=== PATIENT | male | born 1970 | race Caucasian/White ===

== ENCOUNTER 2020-02-14 08:18 | Outpatient (CLI) | payer BC ==
--- NOTE | 2020-02-14 11:20 | MRI ---
MRI CERVICAL SPINE WITHOUT CONTRAST: Date: 02/14/2020 INDICATION: Ataxia. Neck pain. FINDINGS: The cervical vertebra maintain height and alignment. Vertebral body signal appears normal. There are degenerative changes. Mild anterior wedging of C5 with anterior osteophytes at C4, C5, and C6. Mild loss of disc space at C5-6. The other disc spaces are relatively well preserved. No significant disc bulge or protrusion seen at C2-3, C3-4, or C4-5. At C5-6, there is a disc protrusion paracentrally on the left which does compress the anterior cord o n the left producing significant cord compression and central canal stenosis. No definite edema or my elomalacia seen within the cord on T2 images. At C6-7, no significant disc bulge or protrusion. IMPRESSION: Disc protrusion paracentrally on the left at C5-6 produces cord compression and central canal stenosi s. POS: AGW
--- NOTE | 2020-02-14 11:59 | MRI ---
MRI BRAIN WITH AND WITHOUT CONTRAST: Date: 02/14/2020 INDICATION: Ataxia. FINDINGS: Ventricles have normal size and position. No evidence of restricted diffusion. No mass or edema. There are a few scattered tiny white matter hyperintensities on FLAIR sequence seen in the subcortica l white matter of both cerebral hemispheres. No significant deep white matter signal abnormality. No abnormal enhancement. The intracranial internal carotid arteries, cerebral arteries, basilar arteries, and dural venous sin uses exhibit flow-voids. Paranasal sinuses and mastoids appear clear. IMPRESSION: 1. There are a few scattered tiny white matter hyperintensities in the subcortical white matter of b oth cerebral hemispheres. These are nonspecific and do not appear to represent pathologic white matte r abnormality. If there is clinical concern, a follow-up noncontrast MRI can be performed in 6 months to confirm stability. 2. MRI brain otherwise unremarkable. POS: AGW
== END 2020-02-14 08:19 | disposition home or self-care (01) ==
LOC: BICMRI 08:18
PROVIDERS: ATTEND Psychiatry & Neurology Neurology
DX: R27.0 Ataxia, unspecified (principal); R93.89 Abnormal findings on diagnostic imaging of other specified body structures; M50.222 Other cervical disc displacement at C5-C6 level; M48.02 Spinal stenosis, cervical region
CPT/HCPCS: 70553; 72141

== ENCOUNTER 2020-02-26 15:38 | Outpatient (CLI) | payer BC ==
--- NOTE | 2020-02-26 16:21 | RAD ---
CERVICAL SPINE FIVE VIEWS: 02/26/20 INDICATION: History of herniated nucleus pulposus of the cervical region. Disc displacement. COMPARISON: Cervical spine MRI examination dated 02/14/20. FINDINGS: There is moderate disc degenerative disease at C5-6. There is slight retrolisthesis of C5 on C6. This slightly reduces with flexion and extension. There is mild facet joint degenerative change. Preverte bral soft tissues are normal appearing. Lung apices are clear. IMPRESSION: Mild cervical spondylosis most pronounced at C5-6. Mild retrolisthesis of C5 on C6 reduces with exten betsey and flexion. POS: BH
== END 2020-02-26 15:39 | disposition home or self-care (01) ==
LOC: BICRAD 15:38
PROVIDERS: ATTEND Neurological Surgery
DX: M50.20 Other cervical disc displacement, unspecified cervical region (principal); M47.812 Spondylosis without myelopathy or radiculopathy, cervical region; M43.12 Spondylolisthesis, cervical region
CPT/HCPCS: 72050

== ENCOUNTER 2020-03-10 06:42 | Outpatient (CLI) | payer BC ==
[2020-03-10 11:03] LABS: Hemoglobin 15.9 g/dL (14.0-18.0); Mean Corpuscular HGB CONC 34.2 G/DL (32.0-36.0); Mean Corpuscular Hemoglobin 31.6 PG (27.0-33.0); Mean Corpuscular Volume 92.4 fl (80.0-100.0); Mean Platelet Volume 10.6 fl (7.4-10.4); Platelet Count 202 10x3/uL (130-400); RBC Distribution Width 12.6 % (11.5-14.5); Red Blood Cell (RBC) Count 5.03 10x6/uL (4.40-5.80); White Blood Cell (WBC) Count 8.5 10x3/uL (4.5-11.0)
[2020-03-10 11:42] LABS: PTT 28.6 sec (22.0-33.0); Prothrombin Time 10.1 sec (9.5-12.1)
--- NOTE | 2020-03-10 16:58 | EKG ---
Test Reason : Blood Pressure : / mmHG Vent. Rate : 100 BPM Atrial Rate : 100 BPM P-R Int : 138 ms QRS Dur : 080 ms QT Int : 328 ms P-R-T Axes : 075 090 038 degrees QTc Int : 423 ms Normal sinus rhythm Rightward axis Borderline ECG Confirmed by DR. Luz WILSON ([id number]) on 03/10/2020 4:57:37 PM Referred By: CHAS Confirmed By:DR. Luz WILSON
[2020-03-10 19:13] LABS: SARS-CoV-2 MS2 Positive; SARS-CoV-2 N Gene Negative; SARS-CoV-2 S Gene Negative; SARS-CoV-2 by NAA Not Detected (NotDetected); SARS-CoV-2 orf1ab Negative
== END 2020-03-10 06:43 | disposition home or self-care (01) ==
LOC: LABBT 06:42
PROVIDERS: ATTEND Neurological Surgery
DX: Z01.818 Encounter for other preprocedural examination (principal); Z20.828 Contact with and (suspected) exposure to other viral communicable diseases; M50.022 Cervical disc disorder at C5-C6 level with myelopathy
CPT/HCPCS: 85027; 85610; 85730; 87635; 93005; 93010; U0003

== ENCOUNTER 2020-03-13 10:32 | Day surgery (SDC) | payer BC ==
[2020-03-12 09:05] VITALS: BMI 26.4
--- NOTE | 2020-03-13 05:15 | HP ---
REASON FOR H AND P: Surgery on 03/13/2020, case #[id number]. HISTORY OF PRESENT ILLNESS: Mr. Meraz is a 49-year-old male, who complains for the past 1 year of balance instability. His balance issues started to get worse a few months ago. Along with his balance instability, he also has numbness in his right hand more so than his left hand. As of a few months ago, he reports constant numbness in his bilateral thumb, pointer, and middle finger. He has become clumsy with his fingers and is having difficulty holding objects. Denies bladder or bowel dysfunction. REVIEW OF SYSTEMS: CONSTITUTIONAL: Denies fever, chills. ENT: Denies change in vision or hearing. CARDIAC: Denies chest pain, shortness of breath, diaphoresis. PULMONARY: Denies shortness of breath, cough, hemoptysis. GI: Denies abdominal pain, nausea, vomiting, diarrhea, change in stool formation and consistency. : Denies trouble with urination, frequency of urination, bloody urine. SKIN: Denies skin rash, bruising, bleeding, skin masses. MUSCULOSKELETAL: As per history of present illness. NEUROLOGICAL: As per history of present illness. PSYCHOLOGICAL: Denies anxiety, depression, behavior changes. PAST MEDICAL HISTORY: 1. Hypertension. 2. Insomnia. PAST SURGICAL HISTORY: Knee, ear. HOSPITALIZATIONS: As above surgeries. FAMILY HISTORY: Father , diagnosed with hypertension and cancer. Mother , cancer. Children are alive. SOCIAL HISTORY: Recently quit smoking. Occasional alcohol use. Denies illicit drug use. MEDICATIONS: 1. Folic acid 0.4 mg. 2. Becca-D 24-hour tablet. 3. Clonidine 0.1 mg. 4. Alprazolam 0.5 mg. 5. Levothyroxine 50 mcg. 6. Carbamazepine 100 mg. ALLERGIES: NO KNOWN DRUG ALLERGY. PHYSICAL EXAMINATION: VITAL SIGNS: Weight 190, height 71 inches, BMI 26.50. HEENT: Pupils are equal. NECK: Normal, soft, and supple. No masses are noted. Range of motion is intact and slightly painful. NEUROLOGIC: Awake, alert, and oriented x3. Memory, attention, fund of knowledge, and language are normal. Cranial nerves grossly intact. Gait and station, mild spasticity. Tandem gait is off balance. Motor exam; bilateral weakness in hand intrinsics and arm extensors. Sensory exam, nondermatomal loss of sensation in bilateral hands. Reflex exam, very brisk knees. Clonus 1-2. IMAGING STUDIES: MRI of the C-spine: cord compression from herniated cervical disk at C5-C6. X-ray of the C-spine: flexion-extension stable. 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 PLAN: 1. C5-C6 ACDF. Anesthesia clearance and primary care clearance. 2. Preop labs; CBC, PT, PTT, COVID-19. 3. Stop smoking 4 weeks prior to surgery. 4. Clearance INFORMED CONSENT: We discussed the indications, risks, benefits, alternatives, and expected results from surgery. The risks discussed included, but were not limited to, bleeding, infection, CSF leak, nerve damage, weakness, swallowing trouble, feeding tube placement, tracheal injury, esophageal injury, vocal cord injury, spinal cord injury, incontinence, paralysis, ventilator dependency, wheelchair dependency, stroke, loss of vision, carotid artery injury, jugular vein injury, hardware misplacement, cardiopulmonary complications of anesthesia or . Long-term complications discussed included, but were not limited to, hardware failure and degeneration of surrounding disk. He understands the risks and is willing to proceed. Job ID: [id number] [facility]
[2020-03-13] MEDS ORDERED: HYDROmorphone 2 MG/ML VIAL ONE (11:40)
[2020-03-13] MEDS ORDERED: Fentanyl 100 MCG/2 ML VIAL ONE ×3 (11:40→15:31)
[2020-03-13] MEDS ORDERED: Thrombin 5000 UNITS/5 ML VIAL ONE (11:45)
[2020-03-13] MEDS ORDERED: SUGAMMADEX SODIUM 200 MG/2 ML VIAL ONE (12:42)
[2020-03-13] MEDS ORDERED: Midazolam HCl 2 mg/2 ml Vial ONE ×2 (12:43→12:54)
[2020-03-13] MEDS ORDERED: Promethazine HCl 25 MG/ML VIAL IM PRN (13:53)
[2020-03-13] MEDS ORDERED: PACU-Morphine 4MG/ML VIAL SLOW IVP PRN (13:53)
[2020-03-13] MEDS ORDERED: Meperidine HCl/PF 25 MG/ML VIAL SLOW IVP PRN (13:53)
[2020-03-13] MEDS ORDERED: HYDROmorphone 2 MG/ML VIAL SLOW IVP PRN (13:53)
[2020-03-13] MEDS ORDERED: Promethazine HCl 25 MG/ML VIAL SLOW IVP PRN (13:53)
[2020-03-13] MEDS ORDERED: Ondansetron HCl/PF 4 MG/2 ML Vial IVP PRN (13:53)
[2020-03-13] MEDS ORDERED: Morphine Sulfate 2 MG/ML SYRINGE SLOW IVP PRN (13:53)
[2020-03-13] MEDS ORDERED: Tamsulosin HCl 0.4 MG CAP ONE (16:09)
--- NOTE | 2020-03-13 20:10 | OP ---
DATE OF PROCEDURE: 03/13/2020 PARTS CONSULTANT: Oni Cadena PA-C PREOPERATIVE INDICATION: Prevent neurological deterioration. PREOPERATIVE DIAGNOSIS: Cervical intervertebral disk herniation at C5-6 with cord compression and myelopathy. POSTOPERATIVE DIAGNOSIS: Cervical intervertebral disk herniation at C5-6 with cord compression and myelopathy. OPERATIVE PROCEDURE: Anterior cervical diskectomy, intervertebral arthrodesis, placement of intervertebral biomechanical device and anterior cervical plating at C5-6, local morselized autograft, morselized allograft, and operating microscope (the anterior cervical plate with a separate device from the interbody graft). PREOPERATIVE MEDICATIONS: Ancef 2 g IV. DRAIN NUMBER: Zero. DRAIN TYPE: None. DESCRIPTION OF PROCEDURE: The patient was brought to the operating room. General endotracheal anesthesia was induced. The patient was positioned on the operating table supine with his head supported by a donut-shaped headrest and his neck was kept in normal anatomic alignment. A lateral fluoro radiograph was used to plan our incision. The right side of the neck was sterilely prepped and draped. We opened our incision with a 10 blade knife and controlled bleeding with bipolar cautery. We dissected sharply to the platysma and cut this muscle in line with our incision. We continued our dissection medial to the sternocleidomastoid and lateral to the trachea and esophagus. We arrived to the prevertebral space. We placed a marker at C5-6 and took a lateral fluoro radiograph to confirm the level upon which we were operating. We elevated the longus colli muscles off the anterior surface of the vertebral bodies at C5 and C6 and placed a self-retaining retractor beneath them. We placed distraction pins at C5 and C6 and distracted across the intervening interspace. We incised the interspace with a 15-blade knife and removed disk contents using curettes and rongeurs. As we approached the posterior longitudinal ligament, the operative microscope was brought into the field. Under microscopic magnification using microsurgical techniques, we removed the remainder of the intervertebral disk. We accessed the ventral epidural space with a micro curette and removed posterior longitudinal ligament and posterior osteophytes across the entire interspace from one neural foramen to the other until there was wide decompression of the dura and both foramina. We turned our attention to arthrodesis. We prepared the endplates for grafting using curettes. We measured the height of the interspace with a bone rasp to 9 mm. A 9 mm PEEK intervertebral graft was brought into the field. Morselized osteophytes removed during our decompression were cleaned of soft tissue attachments and added into demineralized bone matrix to form our fusion substrate. The substrate was packed in the center of the PEEK device and that device was advanced into the interspace under radiographic guidance to the appropriate depth. We removed our distraction pins. We removed the operating microscope. A 14 mm anterior cervical plate was brought into the field. We drilled army helicopter pilot holes through the plate into the vertebral bodies. We affixed the plate to C5 and C6 using 14 mm screws. We engaged the locking mechanism over each of the 4 screws. Fixed angle screws were used at C6 and variable angle screws at C5. AP and lateral fluoro radiographs confirmed adequate positioning of our instrumentation. The anterior cervical plate was a separate device from the PEEK interbody device. We irrigated with bacitracin irrigation. We closed the wound in anatomical layers. We applied a sterile dressing. This was a clean case, no contamination. Job ID: [id number]
== END 2020-03-13 18:18 | disposition home or self-care (01) ==
LOC: SDC 10:32
PROVIDERS: ATTEND Neurological Surgery
PROC: 0RT30ZZ Resection of Cervical Vertebral Disc, Open Approach (ICD-10-PCS; principal; 2020-03-13)
PROC: 0RG10A0 Fusion of Cervical Vertebral Joint with Interbody Fusion Device, Anterior Approach, Anterior Column, Open Approach (ICD-10-PCS; principal; 2020-03-13)
DX: M50.022 Cervical disc disorder at C5-C6 level with myelopathy (principal); I10 Essential (primary) hypertension; G47.00 Insomnia, unspecified; E03.9 Hypothyroidism, unspecified; F41.9 Anxiety disorder, unspecified; N40.0 Benign prostatic hyperplasia without lower urinary tract symptoms; Z79.899 Other long term (current) drug therapy
CPT/HCPCS: 76000; C1713; C1776; J0690; J1170; J2250; J3010; J3490

== ENCOUNTER 2020-05-16 10:03 | Outpatient (CLI) | payer BC ==
--- NOTE | 2020-05-16 10:24 | RAD ---
Cervical spine 4 views: 05/16/2020 COMPARISON: 02/26/2020 HISTORY: Evaluate cervical spine following surgery FINDINGS: Anterior discectomy and fusion hardware is present at the C5-6 level. There is no cervical anterolisthesis or retrolisthesis. No significant prevertebral soft tissue swelling is noted. Prevertebral soft tissue thickness appears similar when compared to the 02/26/2020 exam. There is mil d degenerative change at the atlantoaxial interspace, stable. No evidence for hardware failure. The open-mouth odontoid view demonstrates a normal-appearing dens and C1-2 articulation. The swimmer' s lateral view demonstrates a grossly unremarkable cervicothoracic junction. IMPRESSION: Postoperative changes of the cervical spine as detailed above.
== END 2020-05-16 10:04 | disposition home or self-care (01) ==
LOC: TBSIIMAG 10:03
PROVIDERS: ATTEND Neurological Surgery
DX: M50.20 Other cervical disc displacement, unspecified cervical region (principal); Z98.890 Other specified postprocedural states
CPT/HCPCS: 72040

== ENCOUNTER 2020-08-21 12:57 | Outpatient (CLI) | payer BC | END 2020-08-21 12:58 | disposition home or self-care (01) | LOC: BICRAD 12:57 | PROVIDERS: ATTEND Neurological Surgery | DX: R20.0 Anesthesia of skin (principal); Z98.890 Other specified postprocedural states | CPT/HCPCS: 72040 ==

== ENCOUNTER 2021-01-06 07:42 | Outpatient (CLI) | payer BC | END 2021-01-06 07:43 | disposition home or self-care (01) | LOC: TBSIIMAG 07:42 | PROVIDERS: ATTEND Neurological Surgery | DX: G25.9 Extrapyramidal and movement disorder, unspecified (principal); R26.9 Unspecified abnormalities of gait and mobility; M47.816 Spondylosis without myelopathy or radiculopathy, lumbar region; M51.24 Other intervertebral disc displacement, thoracic region | CPT/HCPCS: 72146; 72148 ==

== ENCOUNTER 2023-03-18 12:51 | Outpatient (CLI) | payer BC | END 2023-03-18 12:52 | disposition home or self-care (01) | LOC: BICRAD 12:51 | PROVIDERS: ATTEND Family Medicine | DX: M25.561 Pain in right knee (principal) ==

== ENCOUNTER 2024-06-07 15:28 | Outpatient (CLI) | payer BC | END 2024-06-07 15:29 | disposition home or self-care (01) | LOC: BICRAD 15:28 | PROVIDERS: ATTEND Family Medicine | DX: M25.562 Pain in left knee (principal); M17.12 Unilateral primary osteoarthritis, left knee; Z98.890 Other specified postprocedural states ==